=== PATIENT | male | born 1990 | race Caucasian/White ===

== ENCOUNTER 2016-12-03 20:49 | Emergency (ER) | payer BC ==
[2016-12-03 21:07] VITALS: BP 122/71
[2016-12-03] MEDS ORDERED: MAG HYDROX/ALUMINUM HYD/SIMETH 30 ML UDC PO ONE (21:26)
[2016-12-03] MEDS ORDERED: LIDOCAINE HCL 20 ML UDC PO ONE (21:26)
[2016-12-03] MEDS ORDERED: SUCRALFATE 1 G/10 ML UDC PO ONE (21:26)
--- NOTE | 2016-12-03 21:26 | ERNOTE ---
Abdominal HPI - Narrative Date of Service: 12/03/16 - General Chief Complaint: Abdominal Pain Time Seen by Provider: 12/03/16 21:11 Source: patient Exam Limitations: no limitations - Immun/Allergies/Home Medications Immunizatons: IMMUNIZATION HX Immunizations Up to Date No History of Influenza Vaccine No Hx Pneumococcal Vaccination No Allergies/Adverse Reactions: Allergies azithromycin [From Zithromax Z-Alo] Allergy (Verified 12/03/16 21:07) Itching Home Medications: HOME MEDICATIONS Omeprazole [Prilosec] 20 mg PO DAILY #30 cap 12/03/16 [Last Taken Unknown] - History of Present Illness Narrative: Pt. comes in with c/o periumbilical pain that started around 4 days ago, is intermittent and worsens after eating. Pt. denies any fevers, SOB, CP, NVD, constipation but does state that he has had increased gas recently. Pt. denies not being able to tolerate foods or fluids. Pt. denies any prehospital treatment. Review of Systems - Review of Systems Constitutional: Present: no symptoms reported. Absent: recent illness, fever, chills, weakness, fatigue, malaise, weight loss EYE: Present: no symptoms reported ENT: Present: no symptoms reported Respiratory: Present: no symptoms reported. Absent: shortness of breath, cough , wheezing Cardiology: Present: no symptoms reported. Absent: chest pain, palpitations, edema Gastrointestinal/Abdominal: Present: abdominal pain. Absent: nausea, vomiting, diarrhea, constipation, eating less, drinking less Genitourinary: Present: no symptoms reported Musculoskeletal: Present: no symptoms reported. Absent: back pain, joint pain Skin: Present: no symptoms reported. Absent: rash, change in color Neurological: Present: no symptoms reported. Absent: headache, dizziness/light- headedness, numbness, tingling All Other Systems: All systems neg except as marked - Patient's Past Medical History Patient History - Medical: No pertinent hx Patient History - Cardiac/Respiratory: No pertinent hx Patient History - Cancer: No Hx of Cancer Patient History - Surgical Procedures: No surgical history - Social History Living Situations: home Psych History: Hx of Anxiety Smoking Status: Former smoker Have you smoked in the past 12 months: No Do you dip or chew tobacco: No Alcohol Use: occasionally Drug Use: none - Immunizations Immunizations Up to Date: No Hx Pneumococcal Vaccination: No History of Influenza Vaccine: No Physical Exam - Physical Exam General Appearance: Present: wd/wn, alert, no apparent distress Eye Exam: Normal inspection: bilateral, PERRL: bilateral, EOMI: bilateral Ears, Nose, Throat: Present: normal ENT inspection, normal pharynx Neck: Present: normal inspection, nontender. Absent: lymphadenopathy (R), lymphadenopathy (L) Respiratory: Present: no respiratory distress, normal breath sounds, no accessory muscle use, chest nontender, lungs clear Cardiovascular/Chest: Present: regular rate, rhythm, no murmur, normal peripheral pulses Gastrointestinal/Abdominal: Present: normal bowel sounds, nontender, nondistended, soft, no organomegaly, other - pt. states that pain is constant but not tender with palpation light or deep Back Exam: Present: normal inspection, normal range of motion, no CVA tenderness , no vertebral tenderness Extremity Exam: Present: normal inspection Neurological Exam: Present: alert, oriented, normal mood/affect, no motor/ sensory deficits Skin Exam: Present: normal color, warm/dry ED Progress - Results and Orders Patient's Lab Results:: I have reviewed the patient's lab results. - Vital Signs Patient's Vital Signs:: I have reviewed the patient's vital signs. Vital Signs: Vital Signs 12/03/16 21:02 Temperature 36.7 C Pulse Rate 90 Respiratory 18 Rate Blood Pressure 122/71 O2 Sat by Pulse 97 Oximetry - Progress/Reassessment Chief Complaint: Abdominal Pain Progress:: Pain free at discharge Departure - Departure Clinical Impression: Gastritis Qualifiers: Gastritis type: other gastritis Chronicity: acute Gastritis bleeding: without bleeding Qualified Code(s): K29.00 - Acute gastritis without bleeding Disposition: Home self-care Condition: Good Instructions: Gastritis, Adult, [id number] Additional Instructions: Please follow up in 1-2 weeks if not improving. Cut down on acidy foods. Referrals: Jadiel Elder MD [Primary Care Provider] - Prescriptions: Omeprazole [Prilosec] 20 mg PO DAILY #30 cap
[2016-12-03 21:38] LABS: Hematocrit 45.7 % (42.0-52.0); Mean Cell Volume 87.4 fl (78-100); Mean Corpuscular Hemoglobin 30.6 pg (27-31); Mean Platelet Volume 9.8 fl (6.0-9.5); Neutrophil # 6.8 K/mm3 (1.3-6.0); Neutrophil % 74.7 % (42-75.0); Platelet Count 236 K/mm3 (150-450); Red Blood Count 5.23 M/mm3 (4.7-6.0); Red Cell Distribution Width 12.5 % (11.5-14.0); White Blood Count 9.1 K/mm3 (4.0-10.5)
[2016-12-03 21:43] LABS: Urine Appearance Clear; Urine Bilirubin Negative (NEGATIVE); Urine Blood Negative /ul (NEGATIVE); Urine Color Yellow; Urine Nitrite Negative (NEGATIVE); Urine Protein Negative (NEGATIVE); Urine Urobilinogen Normal (NORMAL)
[2016-12-03 21:44] LABS: Urine Bacteria None Seen; Urine Ketone 5 mg/dL (NEGATIVE); Urine RBC None Seen /hpf (0-5); Urine WBC None Seen /hpf (0-5)
[2016-12-03 21:51] LABS: Albumin * 4.4 gm/dl (3.4-5.0); Anion Gap 10.1 mmol/L (6.8-13.8); BUN/Creatinine Ratio 17.2 (9.0-21.6); Bilirubin, Total 1.6 mg/dL (0.0-1.1); Ca. Corrected For Albumin 8.1 mg/dL (8.4-10.2); Calcium * 8.7 mg/dL (7.9-10.9); Carbon Dioxide 31.6 mmol/L (24-32.6); Potassium 3.7 mmol/L (3.4-4.6); Total Protein 7.8 gm/dL (6.2-8.2)
== END 2016-12-03 22:13 | disposition home or self-care (01) ==
LOC: ER 20:49
DX: K29.00 Acute gastritis without bleeding (principal); Z87.891 Personal history of nicotine dependence

== ENCOUNTER 2017-03-10 03:36 | Emergency (ER) | payer BC ==
[2017-03-10] MEDS ORDERED: NORMAL SALINE 1,000 ML IV ONE (03:56)
--- NOTE | 2017-03-10 04:00 | ERNOTE ---
Medical Problem HPI - General Chief Complaint: General Assessment Time Seen by Provider: 03/10/17 03:51 Source: patient Exam Limitations: no limitations - Immun/Allergies/Home Medications Immunizations: IMMUNIZATION HX Immunizations Up to Date No History of Influenza Vaccine No Hx Pneumococcal Vaccination No Allergies/Adverse Reactions: Allergies azithromycin [From Zithromax Z-Alo] Allergy (Verified 03/10/17 03:46) Itching Home Medications: HOME MEDICATIONS NK [No Home Medication] 03/10/17 [Last Taken Unknown] - History of Present History Narrative: [place]. yesterday he developed fever and generalized body aches. tonight he cannot sleep Timing: getting worse Severity: moderate Modifying Factors - (Improves): Present: medication Review of Systems - Review of Systems Constitutional: Present: fever, chills, weakness. Absent: recent illness EYE: Present: no symptoms reported ENT: Absent: nose congestion, sore throat Respiratory: Absent: shortness of breath, cough Cardiology: Absent: chest pain Gastrointestinal/Abdominal: Absent: nausea, vomiting, diarrhea Genitourinary: Absent: frequency, decreased urinary output Musculoskeletal: Present: muscle pain Skin: Absent: rash, change in color Neurological: Present: no symptoms reported Endocrine: Present: no symptoms reported Hematologic/Lymphatic: Present: no symptoms reported Psych: Present: no symptoms reported - Patient's Past Medical History Patient History - Medical: GERD Patient History - Cardiac/Respiratory: No pertinent hx Patient History - Cancer: No Hx of Cancer Patient History - Surgical Procedures: No surgical history - Social History Living Situations: home Psych History: Hx of Anxiety Smoking Status: Former smoker Patient requests Smoking Cessation Consult: No Initiate information on Smoking Cessation: No Alcohol Use: occasionally Drug Use: none - Immunizations Immunizations Up to Date: No Hx Pneumococcal Vaccination: No History of Influenza Vaccine: No Physical Exam - Physical Exam General Appearance: Present: wd/wn, alert, no apparent distress Eye Exam: Normal inspection: bilateral, PERRL: bilateral Ears, Nose, Throat: Present: normal ENT inspection Neck: Present: normal inspection, nontender Respiratory: Present: no respiratory distress, normal breath sounds, lungs clear Cardiovascular/Chest: Present: regular rate, rhythm, no murmur Gastrointestinal/Abdominal: Present: normal bowel sounds, nontender, nondistended Back Exam: Present: normal inspection, normal range of motion Extremity Exam: Present: normal inspection, normal range of motion, no edema Neurological Exam: Present: alert, oriented, normal mood/affect Skin Exam: Present: normal color, warm/dry Lymphatic Exam: Present: no adenopathy ED Progress - Results and Orders Patient's Lab Results:: I have reviewed the patient's lab results. Results and Orders: Laboratory Tests 03/10/17 03/10/17 04:07 04:07 WBC 8.3 Hgb 15.8 Hct 44.3 Plt Count 191 Neutrophils % 76.5 H Sodium 139 Potassium 3.9 Chloride 102 Carbon Dioxide 29.8 Anion Gap 11.1 BUN 8 Creatinine 0.97 Est GFR (Non-Af Amer) 100 BUN/Creatinine Ratio 8.2 L Random Glucose 120 H Calcium 9.1 Total Bilirubin 1.1 AST 25 ALT 37 Alkaline Phosphatase 67 Total Protein 7.8 Albumin 4.0 - Vital Signs Patient's Vital Signs:: I have reviewed the patient's vital signs. Vital Signs: Vital Signs 03/10/17 03:42 Temperature 38.2 C H Pulse Rate 106 H Respiratory 18 Rate Blood Pressure 132/77 O2 Sat by Pulse 96 Oximetry - Progress/Reassessment Chief Complaint: General Assessment Progress:: Improved Progress Note-Subjective: 03/10/17 05:00 Pt reports continued headache although improved. offered toradol, pt agrees. Departure - Departure Clinical Impression: Heat exhaustion Qualifiers: Encounter type: initial encounter Qualified Code(s): T67.5XXA - Heat exhaustion , unspecified, initial encounter Disposition: Home self-care Condition: Good Instructions: Heat Exhaustion Information Referrals: Jadiel Elder MD [Primary Care Provider] -
[2017-03-10 04:07] LABS: Hematocrit 44.3 % (42.0-52.0); Hemoglobin 15.8 gm/dL (13.5-18.0); Mean Cell Volume 86.5 fl (78-100); Mean Corpuscular Hemoglobin 30.9 pg (27-31); Mean Corpuscular Hgb Conc 35.7 g/dl (32-36); Mean Platelet Volume 9.5 fl (6.0-9.5); Neutrophil # 6.3 K/mm3 (1.3-6.0); Neutrophil % 76.5 % (42-75.0); Platelet Count 191 K/mm3 (150-450); Red Blood Count 5.12 M/mm3 (4.7-6.0); Red Cell Distribution Width 12.5 % (11.5-14.0); White Blood Count 8.3 K/mm3 (4.0-10.5)
[2017-03-10 04:21] LABS: Anion Gap 11.1 mmol/L (6.8-13.8); BUN/Creatinine Ratio 8.2 (9.0-21.6); Bilirubin, Total 1.1 mg/dL (0.0-1.1); Ca. Corrected For Albumin 8.8 mg/dL (8.4-10.2); Calcium * 9.1 mg/dL (7.9-10.9); Carbon Dioxide 29.8 mmol/L (24-32.6); Potassium 3.9 mmol/L (3.4-4.6); Total Protein 7.8 gm/dL (6.2-8.2)
[2017-03-10] MEDS ORDERED: KETOROLAC TROMETHAMINE 60 MG/2 ML VIAL IM ONE ×2 (05:07→05:10)
[2017-03-10 05:21] VITALS: BP 112/71
== END 2017-03-10 05:17 | disposition home or self-care (01) ==
LOC: ER 03:36
DX: T67.5XXA Heat exhaustion, unspecified, initial encounter (principal); R51 Headache; Z87.891 Personal history of nicotine dependence